=== PATIENT | female | born 1980 | race Caucasian/White ===

== ENCOUNTER 2018-05-05 06:30 | Inpatient (IN) | payer BC ==
[2018-05-02 08:52] LABS: BASOPHILS 0.3 % (0-2); EOSINOPHILS 3.3 % (0-7); HEMATOCRIT 38.9 % (36.0-48.0); HEMOGLOBIN 13.2 g/dL (12-16); IMMATURE GRANULOCYTES 0.3 % (0-5); LYMPHOCYTES 21.1 % (15-50); MCH 30.8 pg (26.0-34.0); MCHC 33.9 g/dL (31.0-37.0); MCV 90.9 fL (80.0-100.0); MEAN PLATELET VOLUME 12.8 fL (7.4-10.4); PLATELET COUNT 147 10x3/uL (130-400); RBC 4.28 10x6/uL (4.00-5.40); RDW 13.1 % (11.5-14.5); WBC 7.6 10x3/uL (4.8-10.8)
[2018-05-02 09:08] LABS: CALC OSMOLALITY 278 mosm/kg (275-300); CARBON DIOXIDE 28.1 mmol/L (21.0-32.0); CHLORIDE - SERUM 104 mmol/L (98-107); CREATININE - SERUM 0.7 mg/dL (0.6-1.3); GLUCOSE 83 mg/dL (74-106); POTASSIUM - SERUM 4.1 mmol/L (3.5-5.1); SODIUM 140 mmol/L (136-145); UREA NITROGEN 14 mg/dL (7-18); eGFR NON AFRICAN AMERICAN > 90 mL/min (90-120)
[~2018-05-05] VITALS: Ht 167.6 cm; Wt 81.4 kg
[2018-05-05] VITALS (12 sets, daily range): BP systolic 92–114; BP diastolic 51–85; Ht 167.6 cm; Wt 81.4 kg
[2018-05-05 07:44] LABS: HCG URINE NEGATIVE (NEGATIVE)
[2018-05-05 14:58] LABS: BASOPHILS 0.1 % (0-2); EOSINOPHILS 0.1 % (0-7); HEMATOCRIT 35.3 % (36.0-48.0); HEMOGLOBIN 11.9 g/dL (12-16); IMMATURE GRANULOCYTES 0.4 % (0-5); LYMPHOCYTES 4.8 % (15-50); MCH 30.6 pg (26.0-34.0); MCHC 33.7 g/dL (31.0-37.0); MCV 90.7 fL (80.0-100.0); MEAN PLATELET VOLUME 12.9 fL (7.4-10.4); MONOCYTES 4.2 % (2-11); NEUTROPHILS 90.4 % (40-80); PLATELET COUNT 143 10x3/uL (130-400); RBC 3.89 10x6/uL (4.00-5.40); RDW 12.8 % (11.5-14.5); WBC 19.2 10x3/uL (4.8-10.8)
[2018-05-05 15:20] LABS: CALC OSMOLALITY 272 mosm/kg (275-300); CALCIUM 8.4 mg/dL (8.5-10.1); CARBON DIOXIDE 24.5 mmol/L (21.0-32.0); CHLORIDE - SERUM 103 mmol/L (98-107); CREATININE - SERUM 0.7 mg/dL (0.6-1.3); GLUCOSE 117 mg/dL (74-106); POTASSIUM - SERUM 4.4 mmol/L (3.5-5.1); SODIUM 136 mmol/L (136-145); UREA NITROGEN 13 mg/dL (7-18); eGFR NON AFRICAN AMERICAN > 90 mL/min (90-120)
[2018-05-06 04:16] VITALS: BP 98/56
[2018-05-06 06:56] LABS: BASOPHILS 0.1 % (0-2); EOSINOPHILS 0.9 % (0-7); HEMATOCRIT 33.4 % (36.0-48.0); IMMATURE GRANULOCYTES 0.3 % (0-5); LYMPHOCYTES 9.7 % (15-50); MCH 30.2 pg (26.0-34.0); MCHC 32.9 g/dL (31.0-37.0); MCV 91.8 fL (80.0-100.0); MEAN PLATELET VOLUME 12.9 fL (7.4-10.4); MONOCYTES 6.4 % (2-11); NEUTROPHILS 82.6 % (40-80); PLATELET COUNT 134 10x3/uL (130-400); RBC 3.64 10x6/uL (4.00-5.40); RDW 12.9 % (11.5-14.5)
[2018-05-06 06:57] LABS: WBC 11.3 10x3/uL (4.8-10.8)
[2018-05-06 07:10] VITALS: BP 90/52
[2018-05-06 07:25] LABS: CALC OSMOLALITY 266 mosm/kg (275-300); CALCIUM 8.1 mg/dL (8.5-10.1); CARBON DIOXIDE 27.5 mmol/L (21.0-32.0); CHLORIDE - SERUM 101 mmol/L (98-107); CREATININE - SERUM 0.7 mg/dL (0.6-1.3); GLUCOSE 112 mg/dL (74-106); POTASSIUM - SERUM 3.9 mmol/L (3.5-5.1); SODIUM 134 mmol/L (136-145); eGFR NON AFRICAN AMERICAN > 90 mL/min (90-120)
[2018-05-06 07:29] LABS: UREA NITROGEN 7 mg/dL (7-18)
[2018-05-06 15:49] VITALS: BP 109/59
[2018-05-06 19:00] VITALS: BP 113/57
[2018-05-06 22:59] VITALS: BP 105/61
[2018-05-07 04:58] VITALS: BP 127/59
[2018-05-07 07:33] VITALS: BP 115/60
[2018-05-07 14:10] VITALS: BP 111/59
[2018-05-07 14:56] LABS: BASOPHILS 0.1 % (0-2); EOSINOPHILS 0.8 % (0-7); HEMOGLOBIN 12.2 g/dL (12-16); IMMATURE GRANULOCYTES 0.4 % (0-5); LYMPHOCYTES 6.4 % (15-50); MCH 30.9 pg (26.0-34.0); MCHC 33.9 g/dL (31.0-37.0); MCV 91.1 fL (80.0-100.0); MEAN PLATELET VOLUME 13.2 fL (7.4-10.4); MONOCYTES 7.1 % (2-11); NEUTROPHILS 85.2 % (40-80); RBC 3.95 10x6/uL (4.00-5.40); RDW 12.8 % (11.5-14.5)
[2018-05-07 14:58] LABS: PLATELET COUNT 174 10x3/uL (130-400); WBC 14.6 10x3/uL (4.8-10.8)
[2018-05-07 15:04] LABS: CALC OSMOLALITY 266 mosm/kg (275-300); CALCIUM 8.6 mg/dL (8.5-10.1); CARBON DIOXIDE 29.4 mmol/L (21.0-32.0); CHLORIDE - SERUM 99 mmol/L (98-107); CREATININE - SERUM 0.7 mg/dL (0.6-1.3); GLUCOSE 116 mg/dL (74-106); POTASSIUM - SERUM 3.8 mmol/L (3.5-5.1); SODIUM 134 mmol/L (136-145); UREA NITROGEN 8 mg/dL (7-18); eGFR NON AFRICAN AMERICAN > 90 mL/min (90-120)
[2018-05-07 19:30] VITALS: BP 109/59
[2018-05-08] VITALS: BP 126/63
[2018-05-08 05:30] VITALS: BP 107/59
[2018-05-08 07:38] LABS: BASOPHILS 0.1 % (0-2); EOSINOPHILS 2.4 % (0-7); HEMATOCRIT 32.7 % (36.0-48.0); HEMOGLOBIN 10.9 g/dL (12-16); IMMATURE GRANULOCYTES 0.3 % (0-5); MCH 30.5 pg (26.0-34.0); MCHC 33.3 g/dL (31.0-37.0); MCV 91.6 fL (80.0-100.0); MEAN PLATELET VOLUME 12.3 fL (7.4-10.4); MONOCYTES 7.7 % (2-11); NEUTROPHILS 78.5 % (40-80); PLATELET COUNT 152 10x3/uL (130-400); RBC 3.57 10x6/uL (4.00-5.40); RDW 12.8 % (11.5-14.5)
[2018-05-08 07:47] LABS: ALBUMIN 2.9 g/dL (3.4-5.0); ALKALINE PHOSPHATASE 29 U/L (46-116); ALT (SGPT) 14 U/L (10-68); BILIRUBIN - TOTAL 0.69 mg/dL (0.2-1.3); CALC OSMOLALITY 274 mosm/kg (275-300); CALCIUM 7.9 mg/dL (8.5-10.1); CARBON DIOXIDE 25.7 mmol/L (21.0-32.0); CHLORIDE - SERUM 104 mmol/L (98-107); CREATININE - SERUM 0.7 mg/dL (0.6-1.3); GLUCOSE 100 mg/dL (74-106); POTASSIUM - SERUM 3.7 mmol/L (3.5-5.1); PROTEIN - SERUM 6.2 g/dL (6.4-8.2); SODIUM 138 mmol/L (136-145); UREA NITROGEN 10 mg/dL (7-18); eGFR NON AFRICAN AMERICAN > 90 mL/min (90-120)
[2018-05-08 07:58] VITALS: BP 101/59
[2018-05-08 08:28] LABS: WBC 10.3 10x3/uL (4.8-10.8)
[2018-05-08 14:02] VITALS: BP 115/59
[2018-05-08 19:30] VITALS: BP 106/59
[2018-05-09 00:08] VITALS: BP 114/61
[2018-05-09 05:00] VITALS: BP 110/61
[2018-05-09 09:00] VITALS: BP 114/68
== END 2018-05-09 10:52 | disposition home or self-care (01) | DRG 742 ==
LOC: D.SDCHOLD 06:30 → D.LD 06:30 → D.SDCHOLD 07:41 → D.LD 13:55 → D.WS 05-08 19:34
PROVIDERS: Obstetrics & Gynecology
PROC: 0UB70ZZ Excision of Bilateral Fallopian Tubes, Open Approach (ICD-10-PCS; 2018-05-05)
PROC: 0UT90ZZ Resection of Uterus, Open Approach (ICD-10-PCS; principal; 2018-05-05 08:30)
DX: N92.0 Excessive and frequent menstruation with regular cycle (principal); K56.7 Ileus, unspecified; F98.8 Other specified behavioral and emotional disorders with onset usually occurring in childhood and adolescence; Z72.0 Tobacco use

== ENCOUNTER 2018-05-10 16:47 | Inpatient (IN) | payer BC ==
[~2018-05-10] VITALS: Ht 167.6 cm; Wt 79.4 kg
[2018-05-10 18:02] LABS: BASOPHILS 0.1 % (0-2); EOSINOPHILS 0.3 % (0-7); HEMATOCRIT 35.9 % (36.0-48.0); HEMOGLOBIN 12.2 g/dL (12-16); IMMATURE GRANULOCYTES 0.3 % (0-5); LYMPHOCYTES 5.4 % (15-50); MCV 91.1 fL (80.0-100.0); MEAN PLATELET VOLUME 12.2 fL (7.4-10.4); MONOCYTES 6.8 % (2-11); NEUTROPHILS 87.1 % (40-80); RBC 3.94 10x6/uL (4.00-5.40); RDW 12.6 % (11.5-14.5); WBC 9.4 10x3/uL (4.8-10.8)
[2018-05-10 18:05] LABS: PLATELET COUNT 243 10x3/uL (130-400)
[2018-05-10 18:18] LABS: ALBUMIN 3.2 g/dL (3.4-5.0); ALKALINE PHOSPHATASE 41 U/L (46-116); ALT (SGPT) 16 U/L (10-68); AMYLASE - SERUM 18 U/L (25-115); BILIRUBIN - TOTAL 0.62 mg/dL (0.2-1.3); CALC OSMOLALITY 270 mosm/kg (275-300); CALCIUM 9.2 mg/dL (8.5-10.1); CHLORIDE - SERUM 97 mmol/L (98-107); CREATININE - SERUM 0.6 mg/dL (0.6-1.3); GLUCOSE 120 mg/dL (74-106); LIPASE 72 U/L (73-393); POTASSIUM - SERUM 4.3 mmol/L (3.5-5.1); PROTEIN - SERUM 7.7 g/dL (6.4-8.2); SODIUM 135 mmol/L (136-145); UREA NITROGEN 12 mg/dL (7-18); eGFR NON AFRICAN AMERICAN > 90 mL/min (90-120)
[2018-05-10 20:34] LABS: APPEARANCE CLEAR (CLEAR); COLOR YELLOW (YELLOW); GLUCOSE NEGATIVE (NEGATIVE); NITRITE NEGATIVE (NEGATIVE); PROTEIN TRACE mg/dL (NEGATIVE); SPECIFIC GRAVITY 1.025 (1.005-1.020)
[2018-05-10 20:35] LABS: BILIRUBIN NEGATIVE (NEGATIVE); EPITHELIAL CELLS 0-5 /hpf (0-5); KETONE MODERATE mg/dL (NEGATIVE); RED CELLS - URINE NONE SEEN /hpf (0-5); UROBILINOGEN NORMAL (NORMAL); WHITE CELLS - URINE NSEEN /hpf (0-5)
[2018-05-10 20:45] VITALS: BP 117/65
[2018-05-10 22:23] VITALS: BP 123/60; BMI 28.3
[2018-05-11 04:35] VITALS: BP 111/65
[2018-05-11 06:58] LABS: BASOPHILS 0.1 % (0-2); EOSINOPHILS 3.6 % (0-7); HEMATOCRIT 29.9 % (36.0-48.0); HEMOGLOBIN 9.9 g/dL (12-16); IMMATURE GRANULOCYTES 0.4 % (0-5); LYMPHOCYTES 14.9 % (15-50); MCH 30.5 pg (26.0-34.0); MCHC 33.1 g/dL (31.0-37.0); MEAN PLATELET VOLUME 11.9 fL (7.4-10.4); MONOCYTES 9.2 % (2-11); NEUTROPHILS 71.8 % (40-80); RBC 3.25 10x6/uL (4.00-5.40); RDW 12.8 % (11.5-14.5)
[2018-05-11 07:02] LABS: PLATELET COUNT 194 10x3/uL (130-400); WBC 6.7 10x3/uL (4.8-10.8)
[2018-05-11 07:20] VITALS: BP 112/64
[2018-05-11 07:40] LABS: ALKALINE PHOSPHATASE 27 U/L (46-116); ALT (SGPT) 13 U/L (10-68); BILIRUBIN - TOTAL 0.32 mg/dL (0.2-1.3); CALC OSMOLALITY 276 mosm/kg (275-300); CALCIUM 8.1 mg/dL (8.5-10.1); CHLORIDE - SERUM 105 mmol/L (98-107); CREATININE - SERUM 0.5 mg/dL (0.6-1.3); GLUCOSE 84 mg/dL (74-106); POTASSIUM - SERUM 3.8 mmol/L (3.5-5.1); PROTEIN - SERUM 5.8 g/dL (6.4-8.2); SODIUM 139 mmol/L (136-145); UREA NITROGEN 13 mg/dL (7-18); eGFR NON AFRICAN AMERICAN > 90 mL/min (90-120)
[2018-05-11 07:41] LABS: ALBUMIN 2.3 g/dL (3.4-5.0)
[2018-05-11 13:00] VITALS: BP 104/60
[2018-05-11 17:03] VITALS: BP 112/56
[2018-05-11] MEDS ORDERED: PREPLUS CA-FE1 EACH PO (17:58)
[2018-05-11] MEDS ORDERED: NORMODYNE / TR200 MG PO (17:58)
[2018-05-11] MEDS ORDERED: VYVANSE40 MG PO (18:19)
[2018-05-11] MEDS ORDERED: HYDROCODON-ACE1 EAC7 PO (18:20)
[2018-05-11] MEDS ORDERED: IBUPROFEN600 MG PO (18:20)
[2018-05-11 19:30] VITALS: BP 108/59
[2018-05-12 06:43] LABS: BASOPHILS 0.1 % (0-2); EOSINOPHILS 1.6 % (0-7); HEMATOCRIT 28.6 % (36.0-48.0); HEMOGLOBIN 9.5 g/dL (12-16); IMMATURE GRANULOCYTES 0.5 % (0-5); LYMPHOCYTES 7.1 % (15-50); MCH 30.1 pg (26.0-34.0); MCHC 33.2 g/dL (31.0-37.0); MCV 90.5 fL (80.0-100.0); MEAN PLATELET VOLUME 11.5 fL (7.4-10.4); MONOCYTES 5.1 % (2-11); NEUTROPHILS 85.6 % (40-80); PLATELET COUNT 206 10x3/uL (130-400); RBC 3.16 10x6/uL (4.00-5.40); RDW 12.7 % (11.5-14.5); WBC 8.1 10x3/uL (4.8-10.8)
[2018-05-12 07:18] LABS: ALBUMIN 2.3 g/dL (3.4-5.0); ALKALINE PHOSPHATASE 26 U/L (46-116); ALT (SGPT) 11 U/L (10-68); CALCIUM 7.7 mg/dL (8.5-10.1); CARBON DIOXIDE 23.5 mmol/L (21.0-32.0); CHLORIDE - SERUM 103 mmol/L (98-107); CREATININE - SERUM 0.5 mg/dL (0.6-1.3); GLUCOSE 97 mg/dL (74-106); POTASSIUM - SERUM 3.5 mmol/L (3.5-5.1); PROTEIN - SERUM 5.8 g/dL (6.4-8.2); SODIUM 136 mmol/L (136-145); eGFR NON AFRICAN AMERICAN > 90 mL/min (90-120)
[2018-05-12 07:21] LABS: CALC OSMOLALITY 269 mosm/kg (275-300); UREA NITROGEN 7 mg/dL (7-18)
[2018-05-12 08:57] VITALS: Ht 167.6 cm; Wt 79.4 kg
[2018-05-12 10:20] VITALS: BP 118/61
[2018-05-12 16:15] VITALS: BP 113/63
[2018-05-12 19:25] VITALS: BP 124/60
[2018-05-12 23:08] VITALS: BP 102/54
[2018-05-13 04:43] VITALS: BP 115/58
[2018-05-13 07:19] VITALS: BP 113/64
[2018-05-13 08:10] LABS: BASOPHILS 0.1 % (0-2); EOSINOPHILS 0.2 % (0-7); HEMATOCRIT 26.9 % (36.0-48.0); HEMOGLOBIN 9.1 g/dL (12-16); IMMATURE GRANULOCYTES 0.5 % (0-5); LYMPHOCYTES 5.6 % (15-50); MCH 30.4 pg (26.0-34.0); MCHC 33.8 g/dL (31.0-37.0); MEAN PLATELET VOLUME 11.1 fL (7.4-10.4); MONOCYTES 5.9 % (2-11); NEUTROPHILS 87.7 % (40-80); PLATELET COUNT 186 10x3/uL (130-400); RBC 2.99 10x6/uL (4.00-5.40); WBC 9.3 10x3/uL (4.8-10.8)
[2018-05-13 08:33] LABS: ALBUMIN 2.4 g/dL (3.4-5.0); ALKALINE PHOSPHATASE 28 U/L (46-116); ALT (SGPT) 10 U/L (10-68); BILIRUBIN - TOTAL 0.35 mg/dL (0.2-1.3); CALCIUM 8.2 mg/dL (8.5-10.1); CARBON DIOXIDE 23.5 mmol/L (21.0-32.0); CHLORIDE - SERUM 103 mmol/L (98-107); GLUCOSE 130 mg/dL (74-106); POTASSIUM - SERUM 3.3 mmol/L (3.5-5.1); PROTEIN - SERUM 6.1 g/dL (6.4-8.2); SODIUM 137 mmol/L (136-145)
[2018-05-13 08:34] LABS: CALC OSMOLALITY 274 mosm/kg (275-300); CREATININE - SERUM 0.7 mg/dL (0.6-1.3); UREA NITROGEN 10 mg/dL (7-18); eGFR NON AFRICAN AMERICAN > 90 mL/min (90-120)
[2018-05-13 11:22] VITALS: BP 113/62
[2018-05-13 16:38] VITALS: BP 116/64
[2018-05-13 19:35] VITALS: BP 114/65
[2018-05-13 23:28] VITALS: BP 120/66
[2018-05-14 03:11] VITALS: BP 129/69
[2018-05-14 06:55] LABS: BASOPHILS 0.1 % (0-2); EOSINOPHILS 1.9 % (0-7); HEMATOCRIT 26.4 % (36.0-48.0); HEMOGLOBIN 8.8 g/dL (12-16); IMMATURE GRANULOCYTES 0.8 % (0-5); MCH 29.7 pg (26.0-34.0); MCHC 33.3 g/dL (31.0-37.0); MCV 89.2 fL (80.0-100.0); MEAN PLATELET VOLUME 11.7 fL (7.4-10.4); MONOCYTES 7.9 % (2-11); NEUTROPHILS 75.3 % (40-80); RBC 2.96 10x6/uL (4.00-5.40); RDW 13.2 % (11.5-14.5); WBC 7.8 10x3/uL (4.8-10.8)
[2018-05-14 06:57] LABS: PLATELET COUNT 147 10x3/uL (130-400)
[2018-05-14 07:33] VITALS: BP 133/67
[2018-05-14 13:01] VITALS: BP 135/84
[2018-05-14 16:42] VITALS: BP 123/57
[2018-05-14 19:54] VITALS: BP 114/67
[2018-05-15] VITALS: BP 124/71
[2018-05-15 04:02] VITALS: BP 122/71
[2018-05-15 06:53] LABS: BASOPHILS 0.1 % (0-2); EOSINOPHILS 1.4 % (0-7); HEMOGLOBIN 9.2 g/dL (12-16); IMMATURE GRANULOCYTES 0.6 % (0-5); LYMPHOCYTES 9.2 % (15-50); MCH 29.6 pg (26.0-34.0); MCHC 32.9 g/dL (31.0-37.0); MEAN PLATELET VOLUME 11.8 fL (7.4-10.4); MONOCYTES 6.4 % (2-11); NEUTROPHILS 82.3 % (40-80); PLATELET COUNT 202 10x3/uL (130-400); RBC 3.11 10x6/uL (4.00-5.40); RDW 13.4 % (11.5-14.5); WBC 11.2 10x3/uL (4.8-10.8)
[2018-05-15 07:07] LABS: ALBUMIN 2.4 g/dL (3.4-5.0); ALKALINE PHOSPHATASE 27 U/L (46-116); BILIRUBIN - TOTAL 0.34 mg/dL (0.2-1.3); CALCIUM 8.1 mg/dL (8.5-10.1); CHLORIDE - SERUM 106 mmol/L (98-107); CREATININE - SERUM 0.6 mg/dL (0.6-1.3); GLUCOSE 100 mg/dL (74-106); PROTEIN - SERUM 6.1 g/dL (6.4-8.2); SODIUM 143 mmol/L (136-145); eGFR NON AFRICAN AMERICAN > 90 mL/min (90-120)
[2018-05-15 07:11] LABS: ALT (SGPT) 15 U/L (10-68); CALC OSMOLALITY 286 mosm/kg (275-300); CARBON DIOXIDE 29.5 mmol/L (21.0-32.0); UREA NITROGEN 17 mg/dL (7-18)
[2018-05-15 08:30] VITALS: BP 127/77
== END 2018-05-15 16:30 | disposition home or self-care (01) | DRG 389 ==
LOC: D.ER 16:47 → D.LD 20:46 → D.EDHOLD 20:46 → D.LD 20:57
PROVIDERS: Family Medicine; Obstetrics & Gynecology
PROC: 0D9670Z Drainage of Stomach with Drainage Device, Via Natural or Artificial Opening (ICD-10-PCS; principal; 2018-05-10)
DX: K91.30 Postprocedural intestinal obstruction, unspecified as to partial versus complete (principal); E87.1 Hypo-osmolality and hyponatremia; Y83.8 Other surgical procedures as the cause of abnormal reaction of the patient, or of later complication, without mention of misadventure at the time of the procedure; Z72.0 Tobacco use